=== PATIENT | male | born 2005 | race African-American/Black ===

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

== ENCOUNTER 2024-07-20 16:44 | Emergency (ER) | payer OTHER, SELFPAY ==
[2024-07-20 17:31] LABS: Bilirubin Small (Negative); Blood, Urine Negative (Negative); Glucose, Urine (Dipstick) Negative (Negative); Ketone, Urine Negative (Negative); Leukocyte Negative (Negative); Nitrite Negative (Negative); Protein, Urine (Dipstick) 30 mg/dL (Neg-Trace)
[2024-07-20 17:32] LABS: Clarity Hazy (Clear)
[2024-07-20 17:34] LABS: CAUTI Indications for Culture Pelvic or flank pain; RBC/HPF 0-3 HPF (0-3); Specific Gravity, Urine 1.032 (1.002-1.036); Squamous Epithelial 0-3 HPF (0-3)
[2024-07-20 17:35] LABS: Bacteria/HPF 2+ HPF (None Seen)
[2024-07-20 17:37] LABS: Urine Culture Reflex Yes Yes
[2024-07-20] MEDS ORDERED: Lidocaine 1% PF 5 ML VIAL ONE (17:38)
[2024-07-20] MEDS ORDERED: cefTRIAXone (ROCEPHIN) 500 MG VIAL ONE ×2 (17:39)
[2024-07-20] MEDS ORDERED: cefTRIAXone (ROCEPHIN) 1 GM VIAL ONE (17:41)
[2024-07-21 15:03] LABS: Chlam.trachomatis by PCR,Urine DETECTED (NotDetected); GC N.gonorrhoeae PCR,UrineVOID Not Detected (NotDetected)
== END 2024-07-20 18:05 | disposition home or self-care (01) ==
LOC: MADERS 16:44
DX: R30.0 Dysuria (principal)
CPT/HCPCS: 81001; 87086; 87491; 87591; 96372; 99283; J0696